=== PATIENT | female | born 2000 | race African-American/Black ===

== ENCOUNTER 2020-09-06 08:35 | Emergency (ER) | payer OTHER ==
[~2020-09-06] VITALS: Ht 165.1 cm; Wt 71.9 kg
[2020-09-06 08:36] VITALS: BP 130/72
[2020-09-06] MEDS ORDERED: NAPR-837 PO (09:08)
[2020-09-06] MEDS ORDERED: VENTAER INH (09:08)
== END 2020-09-06 09:13 | disposition home or self-care (01) ==
LOC: M ED 08:35
DX: M76.892 Other specified enthesopathies of left lower limb, excluding foot (principal); Z76.0 Encounter for issue of repeat prescription; J45.909 Unspecified asthma, uncomplicated

== ENCOUNTER 2021-11-03 19:50 | Emergency (ER) | payer OTHER ==
[~2021-11-03] VITALS: Ht 165.1 cm; Wt 68.2 kg
[~2021-11-03 19:50] MED LIST: NAPR-837 PO; VENTAER INH
[2021-11-03] MEDS ORDERED: AUGM875T28 PO (23:17)
[2021-11-03] MEDS ORDERED: AUGMENTIN 875 MG TAB PO ONE (23:20)
[2021-11-03 23:29] VITALS: BP 108/67
== END 2021-11-03 23:37 | disposition home or self-care (01) ==
LOC: M ED 19:50
DX: J03.90 Acute tonsillitis, unspecified (principal); J45.909 Unspecified asthma, uncomplicated; Z88.4 Allergy status to anesthetic agent

== ENCOUNTER 2022-08-30 07:33 | Emergency (ER) | payer OTHER ==
[~2022-08-30] VITALS: Ht 165.1 cm; Wt 67.7 kg
[~2022-08-30 07:33] MED LIST changes: +AUGM875T28 PO
[2022-08-30 13:46] VITALS: BP 110/73
== END 2022-08-30 13:48 | disposition home or self-care (01) ==
LOC: M ED 07:33
DX: S89.92XA Unspecified injury of left lower leg, initial encounter (principal); R20.0 Anesthesia of skin; M54.50 Low back pain, unspecified; W17.2XXA Fall into hole, initial encounter; Z88.6 Allergy status to analgesic agent

== ENCOUNTER → 2022-11-20 | Outpatient (CLI) | payer OTHER ==
[2022-11-20 10:35] LABS: BASO # 0.1 10^3/uL (0.0-0.2); BASO % 0.8 % (0.0-1.0); EOS % 0.3 % (0.0-3.0); HEMATOCRIT 43.7 % (36.0-47.0); HEMOGLOBIN 13.7 g/dl (12.0-15.5); LYMPH # 2.4 10^3/uL (1.5-5.0); LYMPH % 40.6 % (24.0-44.0); MEAN CORPUSCULAR HEMOGLOBIN 28.3 pg (27.0-33.0); MEAN CORPUSCULAR HGB CONC 31.4 g/dl (32.0-36.5); MEAN CORPUSCULAR VOLUME 90.3 fl (80.0-96.0); MONO # 0.3 10^3/uL (0.0-0.8); MONO % 5.7 % (2.0-8.0); NEUTROPHILS # 3.1 10^3/uL (1.5-8.5); NEUTROPHILS % 52.4 % (36.0-66.0); PLATELET COUNT, AUTOMATED 238 10^3/uL (150-450); RED BLOOD COUNT 4.84 10^6/uL (4.00-5.40)
[2022-11-20 11:00] LABS: ALBUMIN 3.8 G/DL (3.2-5.2); ALKALINE PHOSPHATASE 63 U/L (46-116); ALT/SGPT 22 U/L (7.0-40); AST/SGOT 20 U/L (<34); BILIRUBIN,TOTAL 0.9 MG/DL (0.3-1.2); BLOOD UREA NITROGEN 8 MG/DL (9-23); CALCIUM LEVEL 9.3 MG/DL (8.5-10.1); CARBON DIOXIDE LEVEL 29 MMOL/L (20-31); CHLORIDE LEVEL 104 MMOL/L (98-107); CREATININE FOR GFR 0.63 MG/DL (0.55-1.30); GLOMERULAR FILTRATION RATE > 60.0 (>60); GLUCOSE, FASTING 72 MG/DL (60-100); SODIUM LEVEL 139 MMOL/L (136-145); TOTAL PROTEIN 7.2 G/DL (5.7-8.2)
[2022-11-20 11:01] LABS: FREE T4 1.04 NG/DL (0.89-1.76); THYROXINE (T4) 7.3 UG/DL (4.5-10.9)
[2022-11-20 11:02] LABS: FREE T3 3.5 PG/ML (2.3-4.2); THYROID STIMULATING HORMONE 0.908 uIU/ML (0.55-4.78)
== END ==
LOC: M LAB 09:53
PROVIDERS: ATTEND Nurse Practitioner Family
DX: Z13.29 Encounter for screening for other suspected endocrine disorder (principal); N92.6 Irregular menstruation, unspecified

== ENCOUNTER → 2023-07-09 | Outpatient (REF) | LOC: M LAB 09:12 | PROVIDERS: ATTEND Nurse Practitioner Adult Health | DX: Z00.00 Encounter for general adult medical examination without abnormal findings (principal) ==

== ENCOUNTER → 2023-11-25 | Outpatient (REF) | payer OTHER ==
[~2023-11-25] MED LIST changes: +ALBU8.5H INH; +ERGO500029 PO; +SERT50TA29 PO; +TRAZ-252 PO
== END ==
LOC: M PLAIMG 10:08 → EDSTATUS 01-24 19:23
PROVIDERS: ATTEND Nurse Practitioner Family
DX: M76.52 Patellar tendinitis, left knee (principal)

== ENCOUNTER 2023-12-28 11:39 | Inpatient (IN) | payer OTHER ==
[~2023-12-28] VITALS: Ht 167.6 cm; Wt 60.9 kg
[~2023-12-28 11:39] MED LIST changes: -ALBU8.5H INH; -ERGO500029 PO; -SERT50TA29 PO; -TRAZ-252 PO
[2023-12-28 12:28] LABS: HEMATOCRIT 43.8 % (36.0-47.0); HEMOGLOBIN 14.5 g/dl (12.0-15.5); MEAN CORPUSCULAR HEMOGLOBIN 29.6 pg (27.0-33.0); MEAN CORPUSCULAR HGB CONC 33.1 g/dl (32.0-36.5); MEAN CORPUSCULAR VOLUME 89.4 fl (80.0-96.0); PLATELET COUNT, AUTOMATED 263 10^3/uL (150-450); WHITE BLOOD COUNT 6.7 10^3/uL (4.0-10.0)
[2023-12-28 12:55] LABS: AMPHETAMINES LEVEL URINE NEGATIVE (NEGATIVE)
[2023-12-28 12:56] LABS: BARBITURATES URINE NEGATIVE (NEGATIVE); BENZODIAZEPINES URINE NEGATIVE (NEGATIVE); COCAINE METABOLITE URINE NEGATIVE (NEGATIVE); METHADONE URINE NEGATIVE (NEGATIVE); OPIATES URINE NEGATIVE (NEGATIVE); PHENCYCLIDINE URINE NEGATIVE (NEGATIVE)
[2023-12-28 12:57] LABS: CANNABINOIDS URINE POSITIVE (NEGATIVE)
[2023-12-28 12:58] LABS: ETHYL ALCOHOL (ETHANOL) < 0.003 % (0.000-0.010)
[2023-12-28 13:00] LABS: ALBUMIN 4.2 G/DL (3.2-5.2); ALKALINE PHOSPHATASE 52 U/L (46-116); ALT/SGPT 15 U/L (7.0-40); AST/SGOT 10 U/L (<34); BILIRUBIN,DIRECT 0.2 MG/DL (<0.4); BILIRUBIN,TOTAL 0.6 MG/DL (0.3-1.2); BLOOD UREA NITROGEN 7 MG/DL (9-23); CALCIUM LEVEL 9.4 MG/DL (8.5-10.1); CARBON DIOXIDE LEVEL 25 MMOL/L (20-31); CHLORIDE LEVEL 107 MMOL/L (98-107); CREATININE FOR GFR 0.65 MG/DL (0.55-1.30); GLOMERULAR FILTRATION RATE > 60.0 (>60); GLUCOSE, FASTING 91 MG/DL (60-100); POTASSIUM SERUM 3.7 MMOL/L (3.5-5.1); SALICYLATE LEVEL < 3.0 MG/DL (<30); SODIUM LEVEL 138 MMOL/L (136-145); TOTAL PROTEIN 7.4 G/DL (5.7-8.2)
[2023-12-28 13:02] LABS: THYROID STIMULATING HORMONE 0.985 uIU/ML (0.55-4.78)
[2023-12-28 13:05] LABS: HCG, SERUM QUALITATIVE NEGATIVE (NEGATIVE)
[2023-12-28] MEDS ORDERED: IBUPROFEN 400MG TAB PO PRN (13:35)
[2023-12-28] MEDS ORDERED: NICOTINE 21MG/24HR 1 EA TRANSDERMAL TD PRN (13:35)
[2023-12-28] MEDS ORDERED: LORazepam 1 MG TAB PO PRN (13:35)
[2023-12-28] MEDS ORDERED: diphenhydrAMINE 25MG CAP PO PRN (13:35)
[2023-12-28] MEDS ORDERED: ALBU8.5H INH (15:18)
[2023-12-28] MEDS ORDERED: ERGO500029 PO (15:18)
[2023-12-28] MEDS ORDERED: HOME MED LIST COMPLETE! XX SCH (15:20)
[2023-12-28 17:34] VITALS: BP 115/77; TEMP 98; O2SAT 100
[2023-12-29 06:32] VITALS: BP 126/63; TEMP 98; O2SAT 100
[2023-12-29] MEDS: ACETAMINOPHEN TAB 650MG DOSE (2X325MG) PO PRN (06:59)
[2023-12-29] MEDS: NICOTINE 7 MG/24 HR TRANSDERMAL TD PRN (12:59)
[2023-12-29 16:18] VITALS: BP 121/84; TEMP 98.1; O2SAT 100
[2023-12-29] MEDS: traZODone 50 MG TAB PO PRN (20:29)
[2023-12-29] MEDS: SERTRALINE HCL 50 MG TAB PO SCH (20:29)
[2023-12-30 06:31] VITALS: BP 110/75; TEMP 98.4; O2SAT 99
[2023-12-30 17:32] VITALS: BP 136/84; TEMP 97.4
[2023-12-31 06:20] VITALS: BP 118/66; TEMP 98.7; O2SAT 100
[2023-12-31] MEDS ORDERED: SERT50TA29 PO (08:48)
[2023-12-31] MEDS ORDERED: TRAZ-252 PO (08:48)
[2023-12-31] MEDS: MOM 30ML SUSPENSION UDC PO PRN (11:13)
== END 2023-12-31 15:00 | disposition home or self-care (01) | DRG 885 ==
LOC: M ED 11:39 → M ED INP 13:35 → M PSY 17:04
PROVIDERS: ADMIT Student in an Organized Health Care Education/Training Program; ATTEND Student in an Organized Health Care Education/Training Program
DX: F33.1 Major depressive disorder, recurrent, moderate (principal); F43.10 Post-traumatic stress disorder, unspecified; Z91.51 Personal history of suicidal behavior; Z88.4 Allergy status to anesthetic agent; F17.290 Nicotine dependence, other tobacco product, uncomplicated

== ENCOUNTER 2024-04-05 17:10 | Emergency (ER) | payer OTHER ==
[~2024-04-05] VITALS: Ht 167.6 cm; Wt 72.5 kg
[~2024-04-05 17:10] MED LIST changes: +ALBU8.5H INH; +ERGO500029 PO; +SERT50TA29 PO; +TRAZ-252 PO
[2024-04-05] MEDS ORDERED: TRAZ-257 PO (17:26)
[2024-04-05] MEDS ORDERED: ZOLO100T PO (17:26)
[2024-04-05 18:45] VITALS: BP 126/79; TEMP 98.5; O2SAT 100
== END 2024-04-05 19:08 | disposition home or self-care (01) ==
LOC: M ED 17:10
DX: S61.101A Unspecified open wound of right thumb with damage to nail, initial encounter (principal); W23.1XXA Caught, crushed, jammed, or pinched between stationary objects, initial encounter; F17.200 Nicotine dependence, unspecified, uncomplicated; F12.10 Cannabis abuse, uncomplicated; Z88.4 Allergy status to anesthetic agent; Z79.52 Long term (current) use of systemic steroids; Z79.899 Other long term (current) drug therapy; Y92.009 Unspecified place in unspecified non-institutional (private) residence as the place of occurrence of the external cause; Y93.89 Activity, other specified; Y99.9 Unspecified external cause status

== ENCOUNTER 2024-06-10 18:39 | Emergency (ER) | payer OTHER ==
[~2024-06-10] VITALS: Ht 167.6 cm; Wt 61.2 kg
[~2024-06-10 18:39] MED LIST changes: +TRAZ-257 PO; +ZOLO100T PO
[2024-06-10 20:42] VITALS: BP 119/72; TEMP 98.8; O2SAT 98
[2024-06-10] MEDS ORDERED: GUAI20TA PO (21:38)
[2024-06-10] MEDS ORDERED: FLON27.5 NARES (21:38)
[2024-06-10] MEDS: guaiFENesin 200 MG TAB PO ONE (21:55)
[2024-06-10] MEDS: FLUTICASONE PROP 0.05% NASAL SPRAY 16 GM (FLONASE) NARES STA (21:56)
== END 2024-06-10 21:59 | disposition home or self-care (01) ==
LOC: M ED 18:39 → EDBD 18:39 → M ED 21:59
DX: U07.1 COVID-19 (principal); Z79.52 Long term (current) use of systemic steroids; Z79.899 Other long term (current) drug therapy

== ENCOUNTER 2024-07-30 11:42 | Emergency (ER) | payer OTHER ==
[~2024-07-30] VITALS: Ht 167.6 cm; Wt 60.2 kg
[~2024-07-30 11:42] MED LIST changes: +FLON27.5 NARES; +GUAI20TA PO
[2024-07-30 13:07] LABS: BASO # 0.1 10^3/uL (0.0-0.2); BASO % 1.5 % (0.0-1.0); EOS % 0.2 % (0.0-3.0); HEMATOCRIT 42.3 % (36.0-47.0); HEMOGLOBIN 14.1 g/dl (12.0-15.5); LYMPH % 37.1 % (24.0-44.0); MEAN CORPUSCULAR HEMOGLOBIN 30.3 pg (27.0-33.0); MEAN CORPUSCULAR HGB CONC 33.3 g/dl (32.0-36.5); MEAN CORPUSCULAR VOLUME 90.8 fl (80.0-96.0); MONO # 0.3 10^3/uL (0.0-0.8); MONO % 5.2 % (2.0-8.0); NEUTROPHILS % 55.8 % (36.0-66.0); PLATELET COUNT, AUTOMATED 247 10^3/uL (150-450); RED BLOOD COUNT 4.66 10^6/uL (4.00-5.40); WHITE BLOOD COUNT 5.4 10^3/uL (4.0-10.0)
[2024-07-30 13:32] LABS: BLOOD UREA NITROGEN 6 MG/DL (9-23); CARBON DIOXIDE LEVEL 27 MMOL/L (20-31); CHLORIDE LEVEL 109 MMOL/L (98-107); CREATININE FOR GFR 0.66 MG/DL (0.55-1.30); GLOMERULAR FILTRATION RATE > 60.0 (>60); GLUCOSE, FASTING 105 MG/DL (60-100); SODIUM LEVEL 141 MMOL/L (136-145)
[2024-07-30 13:36] LABS: HCG, SERUM QUALITATIVE NEGATIVE (NEGATIVE)
[2024-07-30 15:23] VITALS: BP 144/81; TEMP 98.8; O2SAT 100
== END 2024-07-30 15:29 | disposition home or self-care (01) ==
LOC: M ED 11:42
DX: N93.9 Abnormal uterine and vaginal bleeding, unspecified (principal); J45.909 Unspecified asthma, uncomplicated; F43.10 Post-traumatic stress disorder, unspecified; F17.290 Nicotine dependence, other tobacco product, uncomplicated; Z88.8 Allergy status to other drugs, medicaments and biological substances; Z79.899 Other long term (current) drug therapy